=== PATIENT | male | born 1990 | race African-American/Black ===

== ENCOUNTER 2016-07-16 03:02 | Emergency (ER) | payer SELFPAY ==
[~2016-07-16] VITALS: Ht 180.3 cm; Wt 81.8 kg
[~2016-07-16 03:02] MED LIST: HYDR-3971 PO
[2016-07-16 03:36] LABS: GLUCOSE,POINT OF CARE 137 MG/DL (70-110)
[2016-07-16] MEDS ORDERED: LORazepam 2 MG/ML VIAL IVP ONE (03:45)
[2016-07-16] MEDS ORDERED: SODIUM CHLORIDE 0.9% 1,000 ML IV ONE ×2 (03:45→04:45)
[2016-07-16 04:10] LABS: CREATININE 1.91 mg/dL (0.60-1.30); POTASSIUM 3.6 mmol/L (3.5-5.1)
[2016-07-16 04:16] LABS: ALBUMIN 4.2 g/dL (3.4-5.0); BILIRUBIN,TOTAL 0.3 mg/dL (0.1-1.0); TOTAL PROTEIN, SERUM 8.1 g/dL (6.4-8.2)
[2016-07-16 04:21] LABS: BASOPHILS # (AUTO) 0.03 K/uL (0.00-0.20); BASOPHILS % (AUTO) 0.3 % (0.0-2.0); EOSINOPHILS # (AUTO) 0.08 K/uL (0.00-0.70); EOSINOPHILS % (AUTO) 0.61 % (1.0-6.0); HEMATOCRIT 47.4 % (41-53); HEMOGLOBIN 16.2 g/dL (13.5-17.5); LYMPHOCYTES # (AUTO) 1.2 K/uL (1.0-4.8); LYMPHOCYTES % (AUTO) 8.8 % (22.0-44.0); MEAN CORPUSCULAR HEMOGLOBIN 32.6 pg (26.0-34.0); MEAN CORPUSCULAR HGB CONC 34.2 G/dL (31.0-37.0); MEAN CORPUSCULAR VOLUME 95 fL (80-100); MONOCYTES # (AUTO) 0.6 K/uL (0.1-1.0); MONOCYTES % (AUTO) 4.6 % (2.0-9.0); NEUTROPHILS # (AUTO) 11.7 K/uL (1.8-7.7); PLATELET COUNT (AUTO) 320 K/uL (150-450); RED BLOOD CELL COUNT(AUTO) 4.97 MIL/uL (4.50-5.90); WHITE BLOOD COUNT (AUTO) 13.6 K/uL (4.5-11.0)
[2016-07-16 04:23] LABS: NEUTROPHILS % (AUTO) 85.7 % (40.0-70.0)
[2016-07-16 05:23] LABS: ANION GAP 10 mmol/L (8-16); CALCIUM, TOTAL 7.8 mg/dL (8.8-10.5); CARBON DIOXIDE 26 mmol/L (22-29); CHLORIDE 102 mmol/L (98-107); CREATININE 1.58 mg/dL (0.60-1.30); GLOMERULAR FILTR. RATE CALC > 60 mL/min (>60); POTASSIUM 4.2 mmol/L (3.5-5.1); SODIUM SERUM 138 mmol/L (136-145); UREA NITROGEN, BLOOD 13 mg/dL (7-18)
[2016-07-16 05:47] VITALS: BP 127/85
== END 2016-07-16 06:04 | disposition home or self-care (01) ==
LOC: EMS 03:04
DX: T43.625A Adverse effect of amphetamines, initial encounter (principal); E86.0 Dehydration; F12.90 Cannabis use, unspecified, uncomplicated; F15.90 Other stimulant use, unspecified, uncomplicated; F17.210 Nicotine dependence, cigarettes, uncomplicated; Z88.0 Allergy status to penicillin; Y92.89 Other specified places as the place of occurrence of the external cause
CPT/HCPCS: 36415; 80048; 80053; 80307; 82948; 82962; 85025; 93005; 96361; 96374; 99285; G0480; J2060; J7030; 99284